=== PATIENT | female | born 1990 ===

== ENCOUNTER 2022-01-18 17:51 | Inpatient (IN) | payer SELFPAY ==
[2022-01-18] MEDS ORDERED: METHYLERGONOVINE MALEATE 0.2 MG/ML VIAL IM PRN (21:54)
[2022-01-18] MEDS ORDERED: ONDANSETRON 4 MG/2 ML INJ IV PRN (21:54)
[2022-01-18] MEDS ORDERED: LIDOCAINE (2%) 20 MG/1 ML VIAL 20 ML MDV INFILTRATI ONE (21:54)
[2022-01-18] MEDS ORDERED: OXYTOCIN 10 UNIT/1 ML INJ IM PRN (21:54)
[2022-01-18] MEDS ORDERED: MINERAL OIL 30 ML ORAL LIQD PO PRN (21:54)
[2022-01-18] MEDS ORDERED: BUTORPHANOL 2 MG/1 ML INJ IV PRN ×3 (21:54→22:38)
[2022-01-18] MEDS ORDERED: ACETAMINOPHEN 325 MG TAB PO PRN (21:54)
[2022-01-18] MEDS ORDERED: LOPERAMIDE 2 MG CAP PO PRN (21:54)
[2022-01-18] MEDS ORDERED: miSOPROStol 200 MCG TAB PR PRN (21:54)
[2022-01-18] MEDS ORDERED: ePHEDrine SULFATE 50 MG/1 ML INJ IV PRN (21:54)
[2022-01-18] MEDS ORDERED: CARBOPROST TROMETHAMINE 250 MCG/1 ML INJ IM PRN (21:54)
[2022-01-18] MEDS ORDERED: TERBUTALINE 1 MG/1 ML INJ SUB-Q PRN (21:54)
[2022-01-18] MEDS ORDERED: NalbUPHINE 10 MG/1 ML INJ IV PRN (21:54)
[2022-01-18] MEDS ORDERED: OXYTOCIN DRIP 30 UNITS/500 ML BAG IV SCH ×2 (22:00)
--- NOTE | 2022-01-18 22:36 | History and Physical Report ---
History of Present Illness Date of examination: 01/18/22 Date of admission: 01/18/2022 Chief complaint: Contractions History of present illness: 31-year-old primigravida at 38-2/7 weeks gestation presents to OB triage reporting regular and painful uterine contractions every 5 minutes. There is no vaginal bleeding. There is no leaking of fluid. There is good movement. In OB triage, cervix was noted be 4 to 5 cm dilated. The patient is admitted to labor and delivery for expectant management of labor. Past History Past Medical History: no pertinent history Past Surgical History: no surgical history [employer] History: abnormal PAP smear Family/Genetic History: none Social history: no significant social history - Obstetrical History Expected Date of Delivery: 01/30/22 Actual Gestation: 38 Week(s) 3 Day(s) : 1 Para: 0 Hx # Term Pregnancies: 0 Number of Pregnancies: 0 Spontaneous Abortions: 0 Induced : 0 Number of Living Children: 0 Medications and Allergies Allergies Allergy/AdvReac Type Severity Reaction Status Date / Time No Known Allergies Allergy Unverified 01/18/22 21:53 Active Meds: Active Medications Acetaminophen (Acetaminophen 325 Mg Tab) 650 mg PO Q4H PRN PRN Reason: Pain, Mild (1-3) Butorphanol Tartrate (Butorphanol 2 Mg/1 Ml Inj) 1 mg IV Q2H PRN PRN Reason: Pain, Moderate(4-6) LABOR PAIN Butorphanol Tartrate (Butorphanol 2 Mg/1 Ml Inj) 2 mg IV Q2H PRN PRN Reason: Pain , Severe (7-10) Carboprost Tromethamine (Carboprost Tromethamine 250 Mcg/1 Ml Inj) 250 mcg IM ONCE PRN PRN Reason: Uterine Bleeding Ephedrine Sulfate (Ephedrine Sulfate 50 Mg/1 Ml Inj) 10 mg IV Q2M PRN PRN Reason: Hypotension Fentanyl (Fentanyl 100 Mcg/2 Ml Inj) 100 mcg IV Q2H PRN PRN Reason: Pain,Severe (7-10) LABOR PAIN Oxytocin/Sodium Chloride (Pitocin/Ns 30 Unit/500ml) 30 units in 500 mls @ 2 mls/hr IV TITR DUNG; Protocol Lactated Ringer's (Lactated Ringers) 1,000 mls @ 125 mls/hr IV DIRECT DUNG Oxytocin/Sodium Chloride (Pitocin/Ns 30 Unit/500ml) 30 units in 500 mls @ 40 mls/hr IV TITR DUNG; Protocol Loperamide HCl (Loperamide 2 Mg Cap) 2 mg PO ONCE PRN PRN Reason: give with Hemabate Methylergonovine Maleate (Methylergonovine Maleate 0.2 Mg/Ml Vial) 0.2 mg IM ONCE PRN PRN Reason: Uterine Bleeding Mineral Oil (Mineral Oil 30 Ml Oral Liqd) 30 ml PO QHS PRN PRN Reason: Constipation Misoprostol (Misoprostol 200 Mcg Tab) 800 mcg [place] ONCE PRN PRN Reason: Uterine Bleeding Nalbuphine HCl (Nalbuphine 10 Mg/1 Ml Inj) 10 mg IV Q2H PRN PRN Reason: Pain, Moderate (4-6) Ondansetron HCl (Ondansetron 4 Mg/2 Ml Inj) 4 mg IV Q8H PRN PRN Reason: Nausea And Vomiting Oxytocin (Oxytocin 10 Unit/1 Ml Inj) 10 unit IM ONCE PRN PRN Reason: Uterine Bleeding Terbutaline Sulfate (Terbutaline 1 Mg/1 Ml Inj) 0.25 mg SUB-Q ONCE PRN PRN Reason: Hyperstimulation/Hypertonicity Review of Systems All systems: negative - Vital Signs Vital signs: Vital Signs Pulse BP Pulse Ox 96 H 118/74 98 01/18/22 18:50 01/18/22 18:50 01/18/22 18:50 Temp Pulse Resp BP Pulse Ox 99.0 F 83 16 119/65 97 01/18/22 19:27 01/18/22 22:30 01/18/22 19:27 01/18/22 22:21 01/18/22 22:30 - Physical Exam Breasts: Positive: normal Cardiovascular: Regular rate Lungs: Positive: Normal air movement Abdomen: Positive: normal appearance, soft Genitourinary (Female): Positive: normal external genitalia, normal perenium Vulva: both: normal Vagina: Positive: normal moisture Uterus: Positive: enlarged Adnexa: both: normal Anus/Rectum: Positive: normal perianal skin Extremities: Positive: normal Deep Tendon Reflex Grade: Normal +2 - Obstetrical FHR: category 1 Uterine Contraction Monitor Mode: External Cervical Dilatation: 4.5 Cervical Effacement Percentage: 60 station: -3 Uterine Contraction Frequency (min): 5 Uterine Contraction Pattern: Regular Results Result Diagrams: 01/18/22 21:50 All other labs normal. Ultrasound: report reviewed, image reviewed (OB US Limited= SLIUP. Vertex. EFW= 3341 g (54th %-ile). VELIA= 8.8 cm.) Assessment and Plan - Patient Problems (1) 38 weeks gestation of Current Visit: Yes Status: Acute Plan to address problem: care is up-to-date. (2) Active labor at term Current Visit: Yes Status: Acute Plan to address problem: The patient was 4 to 5 cm dilated. Admit to labor and delivery. Expectant management for now.
[2022-01-18 22:41] LABS: Hemoglobin 14.2 gm/dl (10.1-14.3); Mean Corpuscular HGB Conc 34 % (30-34); Mean Corpuscular Volume 90 fl (79-97); Platelet Count 187 K/mm3 (140-440); Red Blood Count 4.64 M/mm3 (3.65-5.03); Red Cell Distribution Width 14.6 % (13.2-15.2)
[2022-01-19] MEDS: LACTATED RINGERS 1,000 ML IV SCH ×2 (01:27→12:32)
[2022-01-19] MEDS: fentaNYL 100 MCG/2 ML INJ IV PRN ×3 (04:09→16:57)
--- NOTE | 2022-01-19 06:22 | Ultrasound Report ---
ULTRASOUND OBSTETRIC INDICATION: Abdominal/pelvic pain. Clinical Gestational Age (GA): 38.2 weeks TECHNIQUE: Transabdominal. COMPARISON: None available. FINDINGS: There is a single intrauterine . Estimated gestational age is 37.2 weeks based on ultrasound measurements. Heart Rate: 166 beats per minute. Estimated Weight in grams (if calculated): 3341 Estimated Weight Growth Percentile (if calculated): 54 Position: cephalic. Cervix: closed. Length in cm (if measured): Not measured Placenta: maternal left and free of the os. Amniotic Fluid Volume: normal Amniotic Fluid Index (VELIA) in cm (if calculated): 8.8. Maternal Adnexa: No significant abnormality. IMPRESSION: 1. Single, living intrauterine with estimated sonographic age of 37 weeks, 2 day(s). 2. No significant sonographic abnormality. Signer Name: Antelmo Biswas MD Signed: 01/19/2022 6:18 AM Workstation Name: [id number]
[2022-01-19] MEDS ORDERED: AMPICILLIN/NS 2 GM/100 ML 2 GM/100 ML BAG IV ONE (09:12)
[2022-01-19] MEDS: OXYTOCIN DRIP 30 UNITS/500 ML BAG IV SCH ×8 (09:28→16:00)
--- NOTE | 2022-01-19 09:57 | Progress Note ---
Assessment and Plan A: IUP@ 38.4 wks GBS unknown p: Continue monitoring GBS protocal Start Pitocin per protocal Anticipate Subjective - Subjective Date of service: 01/19/22 Principal diagnosis: IUP@38.4 wks Patient reports: movement normal, contractions Objective - Vital Signs Vital Signs: Vital Signs - 12hr 01/18/22 01/18/22 01/18/22 21:55 22:00 22:05 Temperature Pulse Rate 87 96 H 75 Respiratory Rate Blood Pressure Blood Pressure [Left] O2 Sat by Pulse 96 96 97 Oximetry O2 Sat by Pulse Oximetry [ Bilateral Throughout] 01/18/22 01/18/22 01/18/22 22:07 22:10 22:15 Temperature Pulse Rate 77 81 84 Respiratory Rate Blood Pressure 123/67 Blood Pressure [Left] O2 Sat by Pulse 97 97 Oximetry O2 Sat by Pulse Oximetry [ Bilateral Throughout] 01/18/22 01/18/22 01/18/22 22:20 22:21 22:25 Temperature Pulse Rate 104 H 105 H 90 Respiratory Rate Blood Pressure 119/65 Blood Pressure [Left] O2 Sat by Pulse 97 97 Oximetry O2 Sat by Pulse Oximetry [ Bilateral Throughout] 01/18/22 01/18/22 01/18/22 22:30 22:35 22:36 Temperature Pulse Rate 83 83 81 Respiratory Rate Blood Pressure 112/67 Blood Pressure [Left] O2 Sat by Pulse 97 98 Oximetry O2 Sat by Pulse Oximetry [ Bilateral Throughout] 01/18/22 01/18/22 01/18/22 22:40 22:57 23:02 Temperature Pulse Rate 110 H 91 H 90 Respiratory Rate Blood Pressure Blood Pressure [Left] O2 Sat by Pulse 96 98 98 Oximetry O2 Sat by Pulse Oximetry [ Bilateral Throughout] 01/18/22 01/18/22 01/18/22 23:05 23:07 23:12 Temperature Pulse Rate 89 85 Respiratory Rate Blood Pressure Blood Pressure [Left] O2 Sat by Pulse 98 97 Oximetry O2 Sat by Pulse 97 Oximetry [ Bilateral Throughout] 01/18/22 01/18/22 01/18/22 23:17 23:22 23:27 Temperature Pulse Rate 94 H 83 96 H Respiratory Rate Blood Pressure Blood Pressure [Left] O2 Sat by Pulse 97 98 98 Oximetry O2 Sat by Pulse Oximetry [ Bilateral Throughout] 01/18/22 01/18/22 01/18/22 23:32 23:37 23:42 Temperature Pulse Rate 85 96 H 85 Respiratory Rate Blood Pressure Blood Pressure [Left] O2 Sat by Pulse 98 98 99 Oximetry O2 Sat by Pulse Oximetry [ Bilateral Throughout] 01/18/22 01/18/22 01/18/22 23:47 23:52 23:57 Temperature Pulse Rate 90 88 102 H Respiratory Rate Blood Pressure Blood Pressure [Left] O2 Sat by Pulse 97 97 98 Oximetry O2 Sat by Pulse Oximetry [ Bilateral Throughout] 01/19/22 01/19/22 01/19/22 00:02 00:07 00:12 Temperature Pulse Rate 81 108 H 81 Respiratory Rate Blood Pressure Blood Pressure [Left] O2 Sat by Pulse 97 98 98 Oximetry O2 Sat by Pulse Oximetry [ Bilateral Throughout] 01/19/22 01/19/22 01/19/22 00:17 00:22 00:27 Temperature Pulse Rate 94 H 87 85 Respiratory Rate Blood Pressure Blood Pressure [Left] O2 Sat by Pulse 98 98 98 Oximetry O2 Sat by Pulse Oximetry [ Bilateral Throughout] 01/19/22 01/19/22 01/19/22 00:32 00:37 00:42 Temperature Pulse Rate 90 93 H 86 Respiratory Rate Blood Pressure Blood Pressure [Left] O2 Sat by Pulse 98 98 96 Oximetry O2 Sat by Pulse Oximetry [ Bilateral Throughout] 01/19/22 01/19/22 01/19/22 00:47 00:52 00:57 Temperature Pulse Rate 88 94 H 81 Respiratory Rate Blood Pressure Blood Pressure [Left] O2 Sat by Pulse 97 97 98 Oximetry O2 Sat by Pulse Oximetry [ Bilateral Throughout] 01/19/22 01/19/22 01/19/22 01:02 01:07 01:12 Temperature Pulse Rate 85 90 78 Respiratory Rate Blood Pressure Blood Pressure [Left] O2 Sat by Pulse 96 97 98 Oximetry O2 Sat by Pulse Oximetry [ Bilateral Throughout] 01/19/22 01/19/22 01/19/22 01:17 01:22 01:27 Temperature Pulse Rate 91 H 86 78 Respiratory Rate Blood Pressure Blood Pressure [Left] O2 Sat by Pulse 96 96 97 Oximetry O2 Sat by Pulse Oximetry [ Bilateral Throughout] 01/19/22 01/19/22 01/19/22 01:32 01:37 01:42 Temperature Pulse Rate 85 86 86 Respiratory Rate Blood Pressure Blood Pressure [Left] O2 Sat by Pulse 97 95 96 Oximetry O2 Sat by Pulse Oximetry [ Bilateral Throughout] 01/19/22 01/19/22 01/19/22 01:47 01:52 01:57 Temperature Pulse Rate 83 87 88 Respiratory Rate Blood Pressure Blood Pressure [Left] O2 Sat by Pulse 96 97 98 Oximetry O2 Sat by Pulse Oximetry [ Bilateral Throughout] 01/19/22 01/19/22 01/19/22 02:02 02:07 02:12 Temperature Pulse Rate 88 89 76 Respiratory Rate Blood Pressure Blood Pressure [Left] O2 Sat by Pulse 96 96 97 Oximetry O2 Sat by Pulse Oximetry [ Bilateral Throughout] 01/19/22 01/19/22 01/19/22 02:17 02:22 02:27 Temperature Pulse Rate 83 85 81 Respiratory Rate Blood Pressure Blood Pressure [Left] O2 Sat by Pulse 97 97 98 Oximetry O2 Sat by Pulse Oximetry [ Bilateral Throughout] 01/19/22 01/19/22 01/19/22 02:32 02:37 02:42 Temperature Pulse Rate 98 H 92 H 80 Respiratory Rate Blood Pressure Blood Pressure [Left] O2 Sat by Pulse 98 98 98 Oximetry O2 Sat by Pulse Oximetry [ Bilateral Throughout] 01/19/22 01/19/22 01/19/22 02:47 02:52 02:57 Temperature Pulse Rate 79 90 72 Respiratory Rate Blood Pressure Blood Pressure [Left] O2 Sat by Pulse 97 96 97 Oximetry O2 Sat by Pulse Oximetry [ Bilateral Throughout] 01/19/22 01/19/22 01/19/22 03:02 03:07 03:12 Temperature Pulse Rate 81 93 H 84 Respiratory Rate Blood Pressure Blood Pressure [Left] O2 Sat by Pulse 96 97 97 Oximetry O2 Sat by Pulse Oximetry [ Bilateral Throughout] 01/19/22 01/19/22 01/19/22 03:17 03:22 03:27 Temperature Pulse Rate 79 89 75 Respiratory Rate Blood Pressure Blood Pressure [Left] O2 Sat by Pulse 98 97 97 Oximetry O2 Sat by Pulse Oximetry [ Bilateral Throughout] 01/19/22 01/19/22 01/19/22 03:32 03:37 03:42 Temperature Pulse Rate 91 H 76 76 Respiratory Rate Blood Pressure Blood Pressure [Left] O2 Sat by Pulse 98 97 98 Oximetry O2 Sat by Pulse Oximetry [ Bilateral Throughout] 01/19/22 01/19/22 01/19/22 03:47 03:52 03:57 Temperature Pulse Rate 77 90 90 Respiratory Rate Blood Pressure Blood Pressure [Left] O2 Sat by Pulse 97 97 96 Oximetry O2 Sat by Pulse Oximetry [ Bilateral Throughout] 01/19/22 01/19/22 01/19/22 04:02 04:07 04:09 Temperature Pulse Rate 87 112 H Respiratory 18 Rate Blood Pressure Blood Pressure [Left] O2 Sat by Pulse 98 97 Oximetry O2 Sat by Pulse Oximetry [ Bilateral Throughout] 01/19/22 01/19/22 01/19/22 04:12 04:17 04:22 Temperature Pulse Rate 89 72 79 Respiratory Rate Blood Pressure Blood Pressure [Left] O2 Sat by Pulse 97 97 97 Oximetry O2 Sat by Pulse Oximetry [ Bilateral Throughout] 01/19/22 01/19/22 01/19/22 04:27 04:32 04:37 Temperature Pulse Rate 66 67 80 Respiratory Rate Blood Pressure Blood Pressure [Left] O2 Sat by Pulse 97 96 96 Oximetry O2 Sat by Pulse Oximetry [ Bilateral Throughout] 01/19/22 01/19/22 01/19/22 04:42 04:47 04:52 Temperature Pulse Rate 68 85 88 Respiratory Rate Blood Pressure Blood Pressure [Left] O2 Sat by Pulse 97 96 98 Oximetry O2 Sat by Pulse Oximetry [ Bilateral Throughout] 01/19/22 01/19/22 01/19/22 04:57 05:02 05:07 Temperature Pulse Rate 82 79 71 Respiratory Rate Blood Pressure Blood Pressure [Left] O2 Sat by Pulse 97 97 97 Oximetry O2 Sat by Pulse Oximetry [ Bilateral Throughout] 01/19/22 01/19/22 01/19/22 05:09 05:12 05:17 Temperature Pulse Rate 71 97 H Respiratory 18 Rate Blood Pressure Blood Pressure [Left] O2 Sat by Pulse 97 97 Oximetry O2 Sat by Pulse Oximetry [ Bilateral Throughout] 01/19/22 01/19/22 01/19/22 05:22 05:27 05:32 Temperature Pulse Rate 90 74 77 Respiratory Rate Blood Pressure Blood Pressure [Left] O2 Sat by Pulse 96 97 96 Oximetry O2 Sat by Pulse Oximetry [ Bilateral Throughout] 01/19/22 01/19/22 01/19/22 05:37 05:42 05:47 Temperature Pulse Rate 69 85 77 Respiratory Rate Blood Pressure Blood Pressure [Left] O2 Sat by Pulse 96 96 96 Oximetry O2 Sat by Pulse Oximetry [ Bilateral Throughout] 01/19/22 01/19/22 01/19/22 05:52 05:57 06:02 Temperature Pulse Rate 75 69 77 Respiratory Rate Blood Pressure Blood Pressure [Left] O2 Sat by Pulse 96 97 96 Oximetry O2 Sat by Pulse Oximetry [ Bilateral Throughout] 01/19/22 01/19/22 01/19/22 06:07 06:12 06:17 Temperature Pulse Rate 72 85 95 H Respiratory Rate Blood Pressure Blood Pressure [Left] O2 Sat by Pulse 97 95 97 Oximetry O2 Sat by Pulse Oximetry [ Bilateral Throughout] 01/19/22 01/19/22 01/19/22 06:22 06:27 06:32 Temperature Pulse Rate 84 74 88 Respiratory Rate Blood Pressure Blood Pressure [Left] O2 Sat by Pulse 97 97 96 Oximetry O2 Sat by Pulse Oximetry [ Bilateral Throughout] 01/19/22 01/19/22 01/19/22 06:34 06:37 06:42 Temperature Pulse Rate 98 H 85 74 Respiratory Rate Blood Pressure Blood Pressure [Left] O2 Sat by Pulse 92 97 96 Oximetry O2 Sat by Pulse Oximetry [ Bilateral Throughout] 01/19/22 01/19/22 01/19/22 06:47 06:52 06:57 Temperature Pulse Rate 79 76 90 Respiratory Rate Blood Pressure Blood Pressure [Left] O2 Sat by Pulse 94 98 96 Oximetry O2 Sat by Pulse Oximetry [ Bilateral Throughout] 01/19/22 01/19/22 01/19/22 07:02 07:03 07:07 Temperature Pulse Rate 78 99 H 89 Respiratory Rate Blood Pressure Blood Pressure [Left] O2 Sat by Pulse 97 93 96 Oximetry O2 Sat by Pulse Oximetry [ Bilateral Throughout] 01/19/22 01/19/22 01/19/22 07:12 07:17 07:22 Temperature Pulse Rate 89 74 76 Respiratory Rate Blood Pressure Blood Pressure [Left] O2 Sat by Pulse 96 97 98 Oximetry O2 Sat by Pulse Oximetry [ Bilateral Throughout] 01/19/22 01/19/22 01/19/22 07:27 07:29 07:32 Temperature Pulse Rate 93 H 108 H 85 Respiratory Rate Blood Pressure Blood Pressure [Left] O2 Sat by Pulse 98 93 97 Oximetry O2 Sat by Pulse Oximetry [ Bilateral Throughout] 01/19/22 01/19/22 01/19/22 07:37 07:42 07:47 Temperature Pulse Rate 78 78 72 Respiratory Rate Blood Pressure Blood Pressure [Left] O2 Sat by Pulse 93 95 97 Oximetry O2 Sat by Pulse Oximetry [ Bilateral Throughout] 01/19/22 01/19/22 01/19/22 07:52 07:57 08:02 Temperature Pulse Rate 87 93 H 69 Respiratory Rate Blood Pressure Blood Pressure [Left] O2 Sat by Pulse 97 97 98 Oximetry O2 Sat by Pulse Oximetry [ Bilateral Throughout] 01/19/22 01/19/22 01/19/22 08:07 08:09 08:12 Temperature Pulse Rate 81 94 H 99 H Respiratory Rate Blood Pressure Blood Pressure [Left] O2 Sat by Pulse 96 94 96 Oximetry O2 Sat by Pulse Oximetry [ Bilateral Throughout] 01/19/22 01/19/22 01/19/22 08:17 08:22 08:27 Temperature Pulse Rate 93 H 94 H 82 Respiratory Rate Blood Pressure Blood Pressure [Left] O2 Sat by Pulse 97 98 98 Oximetry O2 Sat by Pulse Oximetry [ Bilateral Throughout] 01/19/22 01/19/22 01/19/22 08:32 08:37 08:39 Temperature 98.4 F Pulse Rate 89 92 H 78 Respiratory 16 Rate Blood Pressure Blood Pressure 113/72 [Left] O2 Sat by Pulse 98 97 98 Oximetry O2 Sat by Pulse Oximetry [ Bilateral Throughout] 01/19/22 01/19/22 01/19/22 08:42 08:44 08:47 Temperature Pulse Rate 92 H 70 72 Respiratory Rate Blood Pressure 113/72 Blood Pressure [Left] O2 Sat by Pulse 98 98 Oximetry O2 Sat by Pulse Oximetry [ Bilateral Throughout] 01/19/22 01/19/22 01/19/22 08:52 08:54 08:57 Temperature Pulse Rate 60 68 69 Respiratory Rate Blood Pressure Blood Pressure [Left] O2 Sat by Pulse 97 92 96 Oximetry O2 Sat by Pulse Oximetry [ Bilateral Throughout] 01/19/22 01/19/22 01/19/22 09:02 09:07 09:12 Temperature Pulse Rate 64 73 81 Respiratory Rate Blood Pressure Blood Pressure [Left] O2 Sat by Pulse 97 96 97 Oximetry O2 Sat by Pulse Oximetry [ Bilateral Throughout] 01/19/22 01/19/22 01/19/22 09:17 09:22 09:27 Temperature Pulse Rate 64 79 91 H Respiratory Rate Blood Pressure Blood Pressure [Left] O2 Sat by Pulse 97 96 97 Oximetry O2 Sat by Pulse Oximetry [ Bilateral Throughout] 01/19/22 01/19/22 01/19/22 09:32 09:37 09:42 Temperature Pulse Rate 69 64 65 Respiratory Rate Blood Pressure Blood Pressure [Left] O2 Sat by Pulse 98 98 98 Oximetry O2 Sat by Pulse Oximetry [ Bilateral Throughout] 01/19/22 01/19/22 09:47 09:52 Temperature Pulse Rate 71 67 Respiratory Rate Blood Pressure Blood Pressure [Left] O2 Sat by Pulse 97 98 Oximetry O2 Sat by Pulse Oximetry [ Bilateral Throughout] - Exam Breasts: normal Abdomen: Present: normal appearance, soft, normal bowel sounds Vulva: both: normal FHR: auscultation normal, category 1 Uterine Contraction Monitor Mode: External Cervical Dilatation: 6 Cervical Effacement Percentage: 75 station: -2 Uterine Contraction Pattern: Irregular Uterine Tone Measurement Phase: Resting Uterine Contraction Intensity: Moderate Extremities: normal - Labs Labs: Abnormal Labs 01/18/22 21:50 WBC 12.3 H Laboratory Results - last 24 hr 01/18/22 01/18/22 01/18/22 21:50 21:50 23:17 WBC 12.3 H RBC 4.64 Hgb 14.2 Hct 42.0 MCV 90 MCH 31 MCHC 34 RDW 14.6 Plt Count 187 Syphilis IgG/IgM Ab Nonreactive Blood Type O POSITIVE Antibody Screen Negative
[2022-01-19] MEDS: AMPICILLIN/NS 1 GM/50 ML 1 GM/50 ML BAG IV SCH ×2 (13:00→21:31)
--- NOTE | 2022-01-19 15:58 | Event Note ---
Date: 01/19/22 O: CAT I FHT SVE /-2, irreg uc, AROM with light mec A: IUP@38.4 wks COVID 19 pos P: Continue monitoring with Pitocin IUPC placed Anticipate
[2022-01-19] MEDS ORDERED: diphenhydrAMINE 50 MG/ML VIAL IV ONE (16:26)
--- NOTE | 2022-01-19 16:54 | Event Note ---
Date: 01/19/22 O: Pt thrashing about bed, pushing, and refusing an epidural. IUPC out. CAT I FHT, SVE 8/100/-1, Reg uc; cervix extremely swollen. A: IUP@ 40.3 wks with light mec P: Continue monitoring with Pitocin IUPC replaced Pt advised against pushing per collet gluer Benadryl IV for cervical edema Fentanyl IV for pain Anticipate
--- NOTE | 2022-01-19 18:41 | Anesthesia Consultation ---
Anesthesia Consult and Med Hx - Airway Anesthetic Teeth Evaluation: Good ROM Head & Neck: Adequate Mental/Hyoid Distance: Adequate Mallampati Class: Class I Intubation Access Assessment: Good - Pulmonary Exam CTA: Yes - Cardiac Exam Cardiac Exam: RRR - Pre-Operative Health Status ASA Pre-Surgery Classification: ASA2 Proposed Anesthetic Plan: Epidural - Pulmonary Hx Smoking: No Hx Asthma: No Hx Respiratory Symptoms: No SOB: No COPD: No Home Oxygen Therapy: No Hx Pneumonia: No Hx Sleep Apnea: No - Cardiovascular System Hx Hypertension: No Hx Coronary Artery Disease: No Hx Heart Attack/AMI: No Hx Angina: No Hx Percutaneous Transluminal Coronary Angioplasty (PTCA): No Hx Cardia Arrhythmia: No Hx Pacemaker: No Hx Internal Defibrillator: No Hx Valvular Heart Disease: No Hx Heart Murmur: No Hx Peripheral Vascular Disease: No - Central Nervous System Hx Neuromuscular Disorder: No Hx Seizures: No CVA: No Hx Back Pain: No Hx Psychiatric Problems: No - Gastrointestinal Hx Ulcer: No Hx Gastroesophageal Reflux Disease: No - Endocrine Hx Renal Disease: No Hx End Stage Renal Disease: No Hx Cirrhosis: No Hx Liver Disease: No Hx Insulin Dependent Diabetes: No Hx Non-Insulin Dependent Diabetes: No Hx Thyroid Disease: No Hx Hypothyroidism: No Hx Hyperthyroidism: No - Hematic Hx Anemia: No Hx Sickle Cell Disease: No - Other Systems Hx Alcohol Use: No Hx Substance Use: No Hx Cancer: No Hx Obesity: No
--- NOTE | 2022-01-19 18:42 | Anesthesia Day of Surgery ---
Anesthesia Day of Surgery - Day of Surgery Patient Examined: Yes Patient H&P Reviewed: Yes Patient is NPO: Yes Rolando's Test: N/A
[2022-01-19] MEDS ORDERED: LIDOCAINE MPF (2%) 20 MG/1 ML VIAL 5 ML ONE (19:01)
[2022-01-19] MEDS ORDERED: ePHEDrine SULFATE 50 MG/1 ML INJ IV PRN (19:49)
[2022-01-19] MEDS ORDERED: NALOXONE 0.4 MG/1 ML INJ IV PRN (19:49)
--- NOTE | 2022-01-19 19:52 | Progress Note ---
Labor Epidural - Labor Epidural Start Time: 19:20 Stop Time: 19:30 Performed by:: BELEM ARZATE Procedure: L23 prep and drape nsf, local to skin, arleen saline and air at 5 cm, cath placed to 9cm, sterile dressing, neg test, tolerated well, comfortable.
[2022-01-19] MEDS ORDERED: fentaNYL-BUPIV 2 MCG/ML-0.125% 200 MCG/100 ML BAG EPIDURAL SCH (20:00)
--- NOTE | 2022-01-19 21:46 | Event Note ---
Date: 01/19/22 S:Feeling ok O: /0, no change in cervix in 3 hrs s/p epidural placement, MVU's are adequate A: Arrest of Descent P: Dr. Sy made aware of need for
[2022-01-19] MEDS ORDERED: ceFAZolin/Water 2 GM/20 ML 2 GM/20 ML SYRINGE IV NR (22:00)
[2022-01-19] MEDS ORDERED: FAMOTIDINE 20 MG/2 ML INJ IV ONE (22:47)
[2022-01-19] MEDS ORDERED: BICITRA ORAL LIQD 30ML PO ONE (22:47)
[2022-01-19] MEDS ORDERED: AZITHROMYCIN/NS 500 MG/250 ML 500 MG/250 ML BAG IV ONE (22:47)
[2022-01-19] MEDS ORDERED: METOCLOPRAMIDE 10 MG/2 ML INJ IV ONE (22:47)
[2022-01-19] MEDS ORDERED: PHENYLEPHRINE/NS 1,000 MCG/10 ML SYRINGE (OR USE) IV ONE ×3 (22:51→23:23)
[2022-01-19] MEDS ORDERED: ePHEDrine SULFATE 50 MG/1 ML INJ ONE (22:51)
[2022-01-19] MEDS ORDERED: KETOROLAC 30 MG/1 ML INJ ONE (22:51)
[2022-01-19] MEDS ORDERED: LIDOCAINE (2%) 20 MG/1 ML VIAL 20 ML MDV INFILTRATI ONE (22:54)
--- NOTE | 2022-01-19 22:57 | Operative Report ---
Operative Report Operative Report: Date of surgery: January 19, 2022 Preoperative diagnoses: Spontaneous labor, 38 weeks 4 days, failure to progress, distress Postoperative diagnoses: The same. Operation: Lower segment transverse delivery Surgeon:Luci Sy MD Animated Cartoons Painter: Viktor Keita CRNA Anesthesia: Epidural block Quantitative blood loss: 879 mL Complications: None Findings: Baby girl, 2.8kg, Apgars 8/9. The ovaries, fallopian tubes, uterus and lower abd and pelvis were all grossly normal. Procedure in detail: The patient was taken to the operating room and given a spinal block. Patient was placed in the straight supine position and a Curiel catheter was inserted. The patient was prepped in the abdomen. The drapes were placed. A timeout was done. With the go ahead from the auto inspector, a Pfannenstiel incision was made. This incision was carried across the subcutaneous layer to the fascia which was also divided transversely. The recti abdominis muscle flaps were stripped from the fascia using a combination of blunt and sharp dissections. The muscles were in the midline to gain access to the anterior parietal peritoneum which was divided after excluding any underlying viscera. The access to the peritoneal cavity was then widened by manual stretching. The bladder blade was applied. The utero vesicle peritoneal flap was divided transversely allowing the bladder to be displaced caudally. The uterine incision was placed in the lower segment transversely. The uterine incision was carried to the decidual layer. The uterine incision was extended on both sides using the bandage scissors. The amniotic sac was ruptured with clear fluid. The head was lifted out of the false maternal pelvis and delivered through the incision using fundal pressure. The airways were bulb suctioned beginning with the mouth. Continuing fundal pressure combined with traction on the mandibular processes of the jaw delivered the rest of the baby. The umbilical cord was double clamped and divided. The baby was carefully transferred to the pediatric team. The placenta was manually removed from the uterine cavity. The uterine cavity was explored and was empty of any placental remnants. The uterine incision was repaired in 2 layers with #1 Vicryl. The surgical line on the uterus was hemostatic. Blood and clots were cleared from the peritoneal cavity. The anterior parietal peritoneum was repaired with #1 Vicryl. The fascia was repaired with #1 Vicryl. The subcutaneous layer was made hemostatic using the Bovie before the skin was closed subcuticularly with 4-0 Vicryl. There were no complications. The quantitative blood loss was 879 mL. All sponges and instrument counts were correct. Patient was safely transferred to the recovery room.
[2022-01-19] MEDS ORDERED: fentaNYL 100 MCG/2 ML INJ ONE ×2 (23:43→23:48)
[2022-01-20] MEDS ORDERED: NALOXONE 0.4 MG/1 ML INJ IV PRN (00:07)
[2022-01-20] MEDS ORDERED: WITCH HAZEL/ GLYCERIN PAD TP PRN (00:07)
[2022-01-20] MEDS ORDERED: KETOROLAC 30 MG/1 ML INJ IV PRN ×2 (00:07→10:57)
[2022-01-20] MEDS ORDERED: MAGNESIUM HYDROXIDE (MOM) ORAL LIQD UDC PO PRN (00:07)
[2022-01-20] MEDS ORDERED: MORPHINE 2 MG/1 ML INJ IV PRN (00:07)
[2022-01-20] MEDS ORDERED: LANOLIN/ZINC/DIMETHICONE (LANSINOH) 7 GM TP PRN (00:07)
[2022-01-20] MEDS ORDERED: IBUPROFEN 600 MG TAB PO PRN (00:07)
[2022-01-20] MEDS ORDERED: MORPHINE 4 MG/1 ML INJ IV PRN (00:07)
[2022-01-20] MEDS ORDERED: HYDROcodone/ACETAMINOPHEN 5-325 MG TAB PO PRN (00:07)
[2022-01-20] MEDS ORDERED: SIMETHICONE 80 MG CHEW TAB PO PRN (00:07)
[2022-01-20] MEDS ORDERED: ACETAMINOPHEN 325 MG TAB PO PRN (00:07)
--- NOTE | 2022-01-20 00:27 | Progress Note ---
Regional Anesthesia Block - Regional Anesthesia Block Start Time: 00:03 Stop Time: 00:15 Performed By:: BELEM ARZATE Procedure: Bilateral TAP blocks with US guidance. 30 ml bupi -0.25% to each side, 60 ml total. Neg aspiration, nohelia well, no change in VS
[2022-01-20] MEDS ORDERED: OXYTOCIN DRIP 30 UNITS/500 ML BAG IV SCH (01:00)
[2022-01-20] MEDS ORDERED: BUPIVACAINE/PF (0.25%) 2.5 MG/ML 30 ML VIAL INFILTRATI ONE (07:05)
[2022-01-20 09:12] LABS: Hematocrit 36.9 % (30.3-42.9); Mean Corpuscular HGB Conc 33 % (30-34); Mean Corpuscular Volume 93 fl (79-97); Platelet Count 165 K/mm3 (140-440); Red Blood Count 3.98 M/mm3 (3.65-5.03); Red Cell Distribution Width 14.5 % (13.2-15.2)
[2022-01-20] MEDS ORDERED: PRENATAL VIT27-FE FUMARATE-FOLIC ACID VIT TAB PO SCH (10:00)
--- NOTE | 2022-01-20 10:21 | Progress Note ---
Assessment and Plan POD # 1 A: S/P primary LTCS + COVID 19 Hasn't passed gas yet p: Continue routine pp orders D/c zheng and encourage ambulation Awaiting PP cbc results Covid prec D/C home within 24-48hrs if stable - Patient Problems (1) S/P section Current Visit: Yes Status: Acute Subjective - Subjective Date of service: 01/20/22 Principal diagnosis: IUP@38.4 wks Patient reports: pain well controlled, other (Zheng intact draining adq amts jesus colored urine; no gas yet) [place]: doing well, bottle feeding Objective - Vital Signs Latest vital signs: Vital Signs Temp Pulse Resp BP BP Pulse Ox Pulse Ox 01/20/22 08:30 100 01/20/22 08:29 98.4 F 68 18 102/62 98 01/20/22 03:09 99 01/20/22 02:25 99.1 F 86 20 123/66 99 01/20/22 01:44 86 21 118/46 01/20/22 01:40 84 19 114/63 98 01/20/22 01:30 90 19 118/58 97 01/20/22 01:20 89 20 113/61 98 01/20/22 00:50 99.3 F 122 H 16 135/80 01/20/22 00:30 90 22 116/63 99 01/20/22 00:26 108 H 22 114/46 98 01/20/22 00:23 99.1 F 108 H 22 123/65 01/19/22 22:58 123 H 100 01/19/22 22:53 132 H 100 01/19/22 22:48 105 H 100 01/19/22 22:43 128 H 100 01/19/22 22:39 135 H 88 01/19/22 22:38 137 H 99 01/19/22 22:33 124 H 99 01/19/22 22:28 130 H 98 01/19/22 22:23 112 H 98 01/19/22 22:18 102 H 98 01/19/22 22:13 112 H 98 01/19/22 22:08 102 H 99 01/19/22 22:03 129 H 98 01/19/22 21:58 114 H 99 01/19/22 21:53 101 H 98 01/19/22 21:48 97 H 99 01/19/22 21:43 99 H 99 01/19/22 21:38 100 H 98 01/19/22 21:33 103 H 98 01/19/22 21:32 121 H 91 01/19/22 21:28 113 H 99 01/19/22 21:23 126 H 95 01/19/22 21:18 114 H 99 01/19/22 21:13 126 H 98 01/19/22 21:08 111 H 97 01/19/22 21:03 102 H 98 01/19/22 20:58 103 H 98 01/19/22 20:53 99 H 98 01/19/22 20:48 112 H 98 01/19/22 20:45 99.3 F 01/19/22 20:43 132 H 98 01/19/22 20:39 111 H 99/51 01/19/22 20:38 107 H 98 01/19/22 20:33 98 H 98 01/19/22 20:28 121 H 98 01/19/22 20:23 102 H 98/55 96 01/19/22 20:18 102 H 98 01/19/22 20:13 126 H 100 01/19/22 20:08 123 H 100 01/19/22 20:03 115 H 99 01/19/22 19:59 133 H 92 01/19/22 19:58 127 H 99 01/19/22 19:53 122 H 100 01/19/22 19:48 125 H 99 01/19/22 19:43 125 H 98 01/19/22 19:39 122 H 135/68 01/19/22 19:38 111 H 100 01/19/22 19:33 119 H 95 01/19/22 19:28 100 H 97 01/19/22 19:23 94 H 96 01/19/22 19:18 88 97 01/19/22 19:13 114 H 96 01/19/22 19:08 106 H 98 01/19/22 19:03 94 H 98 01/19/22 18:58 102 H 96 01/19/22 18:53 78 96 01/19/22 18:51 74 94 01/19/22 18:48 94 H 97 01/19/22 18:43 87 98 01/19/22 18:38 89 96 01/19/22 18:33 89 97 01/19/22 18:30 97 H 94 01/19/22 18:28 106 H 97 01/19/22 18:23 89 99 01/19/22 18:18 96 H 98 01/19/22 18:13 106 H 95 01/19/22 18:08 109 H 98 01/19/22 18:03 82 98 01/19/22 17:58 89 98 01/19/22 17:53 88 98 01/19/22 17:48 89 99 01/19/22 17:43 72 98 01/19/22 17:38 101 H 96 01/19/22 17:37 90 93 01/19/22 17:33 97 H 97 01/19/22 17:31 77 94 01/19/22 17:28 96 H 96 01/19/22 17:23 72 96 01/19/22 17:22 84 94 01/19/22 17:18 104 H 93 01/19/22 17:15 109 H 94 01/19/22 17:13 96 H 95 01/19/22 17:08 85 97 01/19/22 17:07 74 93 01/19/22 17:03 83 98 01/19/22 17:01 103 H 93 01/19/22 16:58 93 H 96 01/19/22 16:53 105 H 96 01/19/22 16:48 99 H 96 01/19/22 16:43 88 98 01/19/22 16:40 100 H 94 01/19/22 16:38 90 96 01/19/22 16:33 120 H 97 01/19/22 16:32 101 H 94 01/19/22 16:28 97 H 97 01/19/22 16:23 85 97 01/19/22 16:18 85 97 01/19/22 16:13 75 96 01/19/22 16:07 100 H 95 01/19/22 16:02 74 97 01/19/22 15:57 85 97 01/19/22 15:52 72 97 01/19/22 15:47 78 98 01/19/22 15:42 89 98 01/19/22 15:37 81 97 01/19/22 15:32 81 97 01/19/22 15:27 96 H 97 01/19/22 15:22 91 H 96 01/19/22 15:17 102 H 97 01/19/22 15:12 71 98 01/19/22 15:07 78 98 01/19/22 15:02 92 H 98 01/19/22 14:57 72 97 01/19/22 14:52 95 H 95 01/19/22 14:47 89 97 01/19/22 14:42 76 98 01/19/22 14:41 81 94 01/19/22 14:37 94 H 97 01/19/22 14:32 79 97 01/19/22 14:27 83 96 01/19/22 14:22 94 H 97 01/19/22 14:17 95 H 98 01/19/22 14:12 81 98 01/19/22 14:09 88 94 01/19/22 14:07 90 96 01/19/22 14:02 84 96 01/19/22 13:57 98 H 98 01/19/22 13:52 93 H 97 01/19/22 13:47 84 95 01/19/22 13:42 82 97 01/19/22 13:37 99 H 96 01/19/22 13:32 87 98 01/19/22 13:28 90 93 01/19/22 13:27 71 96 01/19/22 13:22 70 97 01/19/22 13:17 95 H 96 01/19/22 13:12 95 H 98 01/19/22 13:07 93 H 96 01/19/22 13:02 92 H 97 01/19/22 12:57 85 97 01/19/22 12:52 88 97 01/19/22 12:47 95 H 97 01/19/22 12:42 74 97 01/19/22 12:37 96 H 97 01/19/22 12:32 92 H 96 01/19/22 12:27 84 97 01/19/22 12:22 71 97 01/19/22 12:17 94 H 97 01/19/22 12:12 70 97 01/19/22 12:07 80 97 01/19/22 12:02 90 98 01/19/22 11:57 85 97 01/19/22 11:52 85 98 01/19/22 11:47 77 98 01/19/22 11:42 80 97 01/19/22 11:37 93 H 99 01/19/22 11:32 89 98 01/19/22 11:30 99 H 94 01/19/22 11:27 82 98 01/19/22 11:22 83 98 01/19/22 11:17 107 H 97 01/19/22 11:12 89 97 01/19/22 11:07 88 96 01/19/22 11:02 98 H 94 01/19/22 10:59 97 H 92 01/19/22 10:57 86 97 01/19/22 10:52 89 97 01/19/22 10:47 95 H 96 01/19/22 10:43 77 93 01/19/22 10:42 66 97 01/19/22 10:37 88 97 01/19/22 10:32 84 98 01/19/22 10:29 106 H 94 01/19/22 10:27 89 97 01/19/22 10:22 80 96 Intake and Output 01/19/22 01/20/22 01/20/22 22:59 06:59 14:59 Intake Total 105.333 40 Balance 105.333 40 Intake: IV 105.333 40 PITOCin/NS 30 UNIT/500ML 105.333 30 units In 500 ml @ 2 mls/hr IV TITR DUNG Rx#: [id number] Right 40 Other: Voiding Method Indwelling Catheter Estimated Blood Loss 839 - Exam Breasts: Present: normal Abdomen: Present: normal appearance, soft, normal bowel sounds Vulva: both: normal Uterus: Present: normal, firm, fundal height below umbilicus Extremities: Present: normal Incision: Present: normal, dry, intact - Labs Labs: Abnormal lab results 01/20/22 Range/Units 07:49 WBC 25.7 H (4.5-11.0) K/mm3
[2022-01-20] MEDS: ceFAZolin/NS 1 GM/50 ML 1 GM/50 ML BAG IV SCH ×2 (10:43→16:15)
[2022-01-20 11:00] LABS: Total Cells Counted 100
[2022-01-20 11:01] LABS: Band Neutrophils # (Manual) 1.8 K/mm3; Basophils % (Manual) 0 % (0.0-1.8); Eosinophils % (Manual) 0 % (0.0-4.3); Platelet Estimate Consistent w Auto; RBC Morphology Normal
[2022-01-20 19:14] LABS: Hematocrit 33.3 % (30.3-42.9); Hemoglobin 11.1 gm/dl (10.1-14.3)
[2022-01-21] MEDS: IBUPROFEN 800 MG TAB PO PRN ×2 (01:40→08:00)
--- NOTE | 2022-01-21 09:13 | Progress Note ---
Assessment and Plan POD # 2 A: S/P primary LTCS + COVID 19 p: Continue routine pp orders Covid prec Encourage ambulation D/C home today per pt's request - Patient Problems (1) S/P section Current Visit: Yes Status: Acute Subjective - Subjective Date of service: 01/21/22 Principal diagnosis: IUP@38.4 wks Patient reports: appetite normal, voiding normally, pain well controlled, flatus, ambulating normally [place]: doing well, bottle feeding Objective - Vital Signs Latest vital signs: Vital Signs Temp Pulse Resp BP BP Pulse Ox Pulse Ox 01/21/22 01:40 18 01/21/22 00:11 98.3 F 68 18 103/61 98 01/20/22 22:00 98 01/20/22 16:16 20 01/20/22 15:43 98.2 F 72 18 101/54 95 01/20/22 12:00 98.5 F 74 18 112/68 98 Intake and Output 01/20/22 01/21/22 01/21/22 22:59 06:59 14:59 Intake Total 480 240 Balance 480 240 Intake: Oral 480 240 Other: Total, Intake Amount 120 120 # Voids Indwelling Catheter 1 1 - Exam Breasts: Present: normal Abdomen: Present: normal appearance, soft, normal bowel sounds Vulva: both: normal Uterus: Present: normal, firm, fundal height below umbilicus Extremities: Present: normal Incision: Present: normal, dry, intact - Labs Labs: Abnormal lab results 01/20/22 Range/Units 07:49 WBC 25.7 H (4.5-11.0) K/mm3 Seg Neuts % (Manual) 83.0 H (40.0-70.0) % Lymphocytes % (Manual) 4.0 L (13.4-35.0) % Seg Neutrophils # Man 21.3 H (1.8-7.7) K/mm3 Lymphocytes # (Manual) 1.0 L (1.2-5.4) K/mm3 Monocytes # (Manual) 1.5 H (0.0-0.8) K/mm3
--- NOTE | 2022-01-21 10:07 | Discharge Summary ---
Providers - Providers Date of Admission: 01/18/22 21:54 Date of discharge: 01/21/22 Attending physician: ALEXANDER MUÑOZ Primary care physician: ALEXANDER MUÑOZ Hospitalization Reason for admission: active labor, IUP at term Delivery: Procedure: primary low transverse Episiotomy: none Laceration: none Incision: normal, dry, intact Other procedures: none complications: none Discharge diagnosis: IUP at term delivered [place] baby: female Hospital course: Pt arrived to OB triage with c/o uc. She was admitted to L&D and had a primary LTCS r/t failure to descend. Her pp stay was w/o complications and she was d/c'd home in stable condition per her request. Condition at discharge: Stable Disposition: 01 HOME / SELF CARE / HOMELESS - Discharge Diagnoses (1) S/P section Status: Acute Plan - Discharge Medications Prescriptions: Ibuprofen [Motrin 800 MG tab] 800 mg PO Q6H PRN #20 tablet PRN Reason: Pain, Mild (1-3) - Provider Discharge Summary Activity: routine, no sex for 6 weeks, no heavy lifting 4 weeks, no strenuous exercise Diet: routine Instructions: routine Additional instructions: [] Smoking cessation referral if applicable(refer to patient education folder for contact #) [] Refer to [facility] Booklet Call your doctor immediately for: * Fever > 100.5 * Heavy vaginal bleeding ( >1 pad per hour) * Severe persistent headache * Shortness of breath * Reddened, hot, painful area to leg or breast * Drainage or odor from incision. * Keep incision clean and dry at all times and follow doctor's instructions regarding bathing/showering - Follow up plan Follow up: ALEXANDER MUÑOZ MD [Primary Care Provider] - 14 Days
[2022-01-21 18:38] VITALS: BP 107/56
== END 2022-01-21 18:24 | disposition home or self-care (01) | DRG 786 ==
LOC: TRG 17:51 → APU 17:54 → TRG 21:54 → LD 23:03 → OB 01-20 02:05
PROVIDERS: ADMIT Obstetrics & Gynecology; ATTEND Obstetrics & Gynecology
PROC: 10D00Z1 Extraction of Products of Conception, Low, Open Approach (ICD-10-PCS; principal; 2022-01-19)
PROC: 10H07YZ Insertion of Other Device into Products of Conception, Via Natural or Artificial Opening (ICD-10-PCS; 2022-01-19)
PROC: 3E0T3BZ Introduction of Anesthetic Agent into Peripheral Nerves and Plexi, Percutaneous Approach (ICD-10-PCS; 2022-01-20)
DX: O77.9 Labor and delivery complicated by fetal stress, unspecified (principal); U07.1 COVID-19; O98.52 Other viral diseases complicating childbirth; O77.0 Labor and delivery complicated by meconium in amniotic fluid; Z37.0 Single live birth; Z3A.38 38 weeks gestation of pregnancy
CPT/HCPCS: 31720; 36415; 76816; 85007; 85014; 85018; 85025; 85027; 86592; 86850; 86900; 86901; 88307; G0378; J3490; J0290; J0595; J0690; J1200; J1885; J2270; J2370; J2590; J2765; J3010; J7120; U0003